=== PATIENT | female | born 1960 | race African-American/Black ===

== ENCOUNTER 2016-10-07 21:28 | Emergency (ER) | payer OTHER ==
[~2016-10-07 21:28] MED LIST: BP MED; NEXIUM PO; PROBIOTIC1 EAC1
== END 2016-10-07 22:00 | disposition home or self-care (01) ==
LOC: SED 21:28
DX: S70.371A Other superficial bite of right thigh, initial encounter (principal); Z23 Encounter for immunization; I10 Essential (primary) hypertension; F17.200 Nicotine dependence, unspecified, uncomplicated; W54.0XXA Bitten by dog, initial encounter; Y92.89 Other specified places as the place of occurrence of the external cause
CPT/HCPCS: 90471; 90715; 99283

== ENCOUNTER → 2017-02-24 | Outpatient (CLI) | payer OTHER ==
--- NOTE | ~2017-02-24 | MY30 ---
[facility] A Service of [facility] & [facility] RADIOLOGY TEXT RESULTS PATIENT: RICK MEDELLIN LOCATION: [facility] : 58 UNIT #: [id number] AGE: [address]: Nerissa Castro MD SEX: F ORDER DR: [id number] [address] [address] [id number] O MR#: [id number] Acc #: [id number] NAME: RICK MEDELLIN : 1960 SEX: F STUDY DATE/TIME: 02/24/2017 12:03 UNIT: [facility] ROOM: STUDY DESCRIPTION: MY SCREEN JESUS BILAT DIGITAL Attending Physician: Nerissa Castro M.D. Referring Physician: Nerissa Castro M.D. Ordering Physician: Nerissa Castro M.D. Primary Care Physician: Nerissa Castro M.D. MEDICAL IMAGING REPORT This report is preliminary unless electronic signature is present. EXAM Bilateral digital screening mammogram with CAD, 02/24/2017. INDICATIONS 56-year-old female for routine screening. No reported problems. No personal or family history of breast cancer. No surgeries. TECHNIQUE CC and MLO views of the breast were obtained reviewed with an FDA-approved CAD device comparison 01/01/2016, 05/27/2014, 04/09/2013, 01/31/2012. FINDINGS Breast parenchyma is composed of scattered fibroglandular densities. The pattern is unchanged. There is no new dominant nodule mass or suspicious clustered microcalcifications. Fibroglandular predominance in the upper/outer anterior right breast unchanged. IMPRESSION 1. Benign screening mammogram. One year follow up recommended. 2. BIRADS 2. Patients over the age of 40 are entered into a reminder system with target due date for the next mammogram. A result letter will also be sent to the patient. BIRADS: 2 Benign findings. Dictated by... Stu Mojica M.D. THIS IS AN ELECTRONICALLY VERIFIED REPORT Stu Mojica M.D. at 02/25/2017 7:38 AM [facility] A Service of [facility] & [facility] RADIOLOGY TEXT RESULTS PATIENT: RICK MEDELLIN LOCATION: [facility] #: [id number] : 58 UNIT #: [id number] AGE: [address]: Nerissa Castro MD SEX: F ORDER DR: KAYLA/erasmo TD: 02/25/2017 00:54 JOB #: [id number] MEDICAL IMAGING REPORT Page 1 of 1
== END | disposition home or self-care (01) ==
LOC: SMAM 01-27 11:45
DX: Z12.31 Encounter for screening mammogram for malignant neoplasm of breast (principal); Z78.0 Asymptomatic menopausal state
CPT/HCPCS: G0202